=== PATIENT | female | born 2000 | race Two or more races ===

== ENCOUNTER 2024-01-09 11:18 | Emergency (ER) | payer BC ==
[~2024-01-09] VITALS: Ht 167.6 cm; Wt 63.5 kg
[2024-01-09] MEDS ORDERED: LIDOCAINE HCL 100 MG/10ML VIAL IJ ONE (12:00)
[2024-01-09] MEDS ORDERED: TETANUS & DIPHTHERIA TOX,ADULT 0.5 ML VIAL IM ONE (12:30)
== END 2024-01-09 13:10 | disposition home or self-care (01) ==
LOC: ER 11:19
DX: S81.011A Laceration without foreign body, right knee, initial encounter (principal); W18.39XA Other fall on same level, initial encounter; Y93.89 Activity, other specified; Y92.89 Other specified places as the place of occurrence of the external cause; Y99.9 Unspecified external cause status